=== PATIENT | male | born 1955 | race Caucasian/White ===

== ENCOUNTER 2024-11-08 05:30 | Day surgery (SDC) | payer OTHER ==
[2024-11-02 12:34] LABS: BASOPHILS # (AUTO) 0.1 X10'3 (0-0.2); BASOPHILS % (AUTO) 1.4 % (0-1); EOSINOPHILS # (AUTO) 0.1 X10'3 (0-0.9); EOSINOPHILS % (AUTO) 3.4 % (0-6); LYMPHOCYTES # (AUTO) 1.2 X10'3 (1.1-4.8); LYMPHOCYTES % (AUTO) 29.9 % (21-51); MEAN CORPUSCULAR HEMOGLOBIN 32.7 PG (27.0-31.0); MEAN CORPUSCULAR HGB CONC 34.8 g/dL (33.0-36.5); MEAN CORPUSCULAR VOLUME 94.1 FL (78-98); MEAN PLATELET VOLUME 8.5 FL (7.4-10.4); MONOCYTES # (AUTO) 0.4 X10'3 (0-0.9); MONOCYTES % (AUTO) 9.1 % (2-12); NEUTROPHILS # (AUTO) 2.2 X10'3 (1.8-7.7); NEUTROPHILS % (AUTO) 56.2 % (42-75); PRE OP PLATELET COUNT 186 X10'3 (140-440); RED BLOOD COUNT 4.58 X10'6 (4.70-6.10); RED CELL DISTRIBUTION WIDTH 13.1 % (11.5-14.5)
[2024-11-02 13:09] LABS: ALBUMIN 4.1 G/DL (3.4-5.0); ALBUMIN/GLOBULIN RATIO 1.4 (1.1-1.5); ALKALINE PHOSPHATASE 101 IU/L (46-116); BLOOD UREA NITROGEN 7 MG/DL (7-18); BUN/CREATININE RATIO 10.4 (10.0-20.0); CALCIUM 8.8 MG/DL (8.5-10.1); CHLORIDE 102 MMOL/L (99-107); CREATININE 0.67 MG/DL (0.60-1.10); PRE OP ALT 28 U/L (30-65); PRE OP ANION GAP 8 (8-16); PRE OP AST 23 U/L (10-37); PRE OP BILIRUB, TOTAL 0.8 MG/DL (0.0-1.0); PRE OP GLUCOSE 96 MG/DL (70-104); PRE OP POTASSIUM 4.5 MMOL/L (3.4-5.1); PRE OP SODIUM 138 MMOL/L (135-145); TOTAL PROTEIN 7.1 G/DL (6.4-8.2); eGFR > 90 ML/MIN
[~2024-11-08] VITALS: Ht 182.9 cm; Wt 80.7 kg
[2024-11-08] VITALS (11 sets, daily range): BP systolic 117–134; BP diastolic 68–86; PULSE 55–70; RESP 11–17; TEMP 97.1; O2SAT 96–100
[~2024-11-08 05:30] MED LIST: APIX5TAB3 PO; CHOL100046 PO; CYAN25003 SL; LACTOBACILLUS PO; SACCHAROMYCES BOULARDII PO
[2024-11-08] MEDS: ceFAZolin 2gm in dextrose, iso 50 ML IV ONE (06:24)
[2024-11-08] MEDS: ringers solution, lacted 1,000 ML IV SCH (06:24)
[2024-11-08] MEDS: famotidine 20mg tablet PO ONE (06:24)
[2024-11-08] MEDS ORDERED: iohexol 300 MG/1 ML 50ml polymer ONE ×2 (07:05→07:40)
[2024-11-08] MEDS ORDERED: sevoflurane 250ml liquid IH ONE (07:26)
[2024-11-08] MEDS ORDERED: fentaNYL/PF 50MCG/1 ML 2ML syringe ONE (07:30)
[2024-11-08] MEDS ORDERED: midazolam 1 mg/ML 2ml injection ONE (07:40)
[2024-11-08] MEDS ORDERED: ondansetron/PF 4mg/2ml inj ONE (07:42)
[2024-11-08] MEDS ORDERED: propofol inj 20 ML IV ONE (07:42)
[2024-11-08] MEDS ORDERED: LIDOcaine 2% (20mg/ml) 5ml vial ONE (07:42)
[2024-11-08] MEDS ORDERED: dexamethasone sod phosphate 4mg/ml inj. ONE (07:42)
[2024-11-08] MEDS ORDERED: proCHLORperazine 10 MG/2 ml inj IV PRN (08:25)
[2024-11-08] MEDS ORDERED: morphine 2 MG/ML inj. syringe IV PRN (08:25)
[2024-11-08] MEDS ORDERED: ringers solution, lacted 1,000 ML IV SCH (08:25)
[2024-11-08] MEDS ORDERED: ondansetron/PF 4mg/2ml inj IV PRN (08:25)
[2024-11-08] MEDS ORDERED: hydrALAZINE 20mg/ml inj. IV PRN (08:25)
[2024-11-08] MEDS ORDERED: labetalol 20mg/4ml (5mg/ml) syringe IV PRN (08:25)
[2024-11-08] MEDS ORDERED: morphine 4 MG/ML inj SYRINge IV PRN (08:25)
[2024-11-08] MEDS ORDERED: meperidine/PF 25mg/ml syringe IV PRN ×3 (08:25)
[2024-11-08] MEDS: acetaminophen 1,000mg/100ml IV 100 ML IV ONE (09:25)
== END 2024-11-08 10:42 | disposition home or self-care (01) ==
LOC: PAS 05:30
PROVIDERS: ATTEND Urology
DX: C67.9 Malignant neoplasm of bladder, unspecified (principal); D49.4 Neoplasm of unspecified behavior of bladder; G47.30 Sleep apnea, unspecified; G62.9 Polyneuropathy, unspecified; I48.91 Unspecified atrial fibrillation; Z79.899 Other long term (current) drug therapy; Z98.890 Other specified postprocedural states
CPT/HCPCS: 52235; 74420; 80053; 82948; 85025; A6258; C1758; J0131; J0690; J1100; J2003; J2250; J2405; J2704; J3010; J7030; J7120; Q9967; Z7506; Z7512; 76000; A4355; A4618